=== PATIENT | male | born 1935 | race Two or more races ===

== ENCOUNTER 2021-12-31 06:11 | Emergency (ER) | payer OTHER ==
[~2021-12-31] VITALS: Ht 190.5 cm; Wt 108.9 kg
--- NOTE | 2021-12-31 06:46 | NUR ---
[id number]. FOUND ON FLOOR. C/O BILAT KNEE PAIN AND NOTED SKIN TEAR ON RFA. DENIES HEAD TRAUMA. PT IS + ON ELIQUIES. PLACED ON MONITOR AND V/S WNL. WAS AT BEDSIDE FOR EVAL.
--- NOTE | 2021-12-31 08:15 | NUR ---
Ramone deluna in [facility] - 12/31/21 at 0815 by ROSHAN CHLAMYDIA/GC SWAB DONE AND SENT TO LAB
[2021-12-31] MEDS ORDERED: TDAP [DIPH/PERTUSSIS/TET] 0.5 ML VIAL IM ONE (08:30)
[2021-12-31] MEDS ORDERED: BACI/NEOM/POLY B OINT PKT 1 UDPKT PACKET TP ONE (08:30)
--- NOTE | 2021-12-31 08:34 | NUR ---
DR. JUAREZ SPEAKING WITH DR. FOSTER.
--- NOTE | 2021-12-31 08:42 | NUR ---
[facility] CALLED FOR TRANSPORT ETA 5 MINS PER JENNY.
[2021-12-31] MEDS ORDERED: BACI/NEOM/POLY B OINT PKT 1 UDPKT PACKET ONE (08:53)
--- NOTE | 2021-12-31 09:10 | NUR ---
REPORT GIVEN TO MERLYN ORTIZ. PATIENT WILL BE GOING BACK TO FACILITY VIA [facility]SPO WITH FAMILY MEMBER
[2021-12-31 09:11] VITALS: BP 115/55
== END 2021-12-31 09:12 ==
LOC: ER 06:14
DX: S51.811A Laceration without foreign body of right forearm, initial encounter (principal); S80.211A Abrasion, right knee, initial encounter; I10 Essential (primary) hypertension; Z86.69 Personal history of other diseases of the nervous system and sense organs; W01.0XXA Fall on same level from slipping, tripping and stumbling without subsequent striking against object, initial encounter; Y93.01 Activity, walking, marching and hiking; Y92.129 Unspecified place in nursing home as the place of occurrence of the external cause; Y99.8 Other external cause status
CPT/HCPCS: 70450-TC; 71045-TC; 73090-TC; 73502; 73560-TC; 90715

== ENCOUNTER 2022-02-13 08:12 | Emergency (ER) | payer OTHER ==
[~2022-02-13] VITALS: Ht 170.2 cm; Wt 106.1 kg
--- NOTE | 2022-02-13 08:24 | NUR ---
TO ER BED 6, [id number] [place] C/O SOB SINCE THIS MORNING, PER EMS 86RA, SATTING 96 ON 15LPM, NONREBREATHER, AAOX2, CONNECTED TO MONITOR, AWAITING MD CAMACHO
--- NOTE | 2022-02-13 09:15 | NUR ---
RAIZA RESS ([id number]) - [phone]
--- NOTE | 2022-02-13 09:15 | NUR ---
RESPIRATORY AT BEDSIDE FOR ABG
[2022-02-13 09:21] LABS: CALCIUM, SERUM 10.2 mg/dL (8.5-10.1); CARBON DIOXIDE 31 mmol/L (21-32); CHLORIDE 107 mmol/L (98-107); CREATININE 1.1 mg/dL (0.6-1.3); GLUCOSE 126 mg/dL (74-106); POTASSIUM 3.5 mmol/L (3.5-5.1); SODIUM SERUM 142 mmol/L (136-145); UREA NITROGEN, BLOOD 21 mg/dL (7-18)
[2022-02-13 09:22] LABS: ABG PCO2 47.8 mmHg (35.0-45.0); ABG PO2 90.3 mmHg (75.0-100.0); COHb 0.6 % (0.5-1.5); MetHb 0.3 % (0.0-1.5); O2Hb 95.2 % (94.0-97.0); SITE, ABG Right Radial; VENT MODE, BG 15 L NRB
[2022-02-13 09:32] LABS: BASOPHILS # (AUTO) 0.1 K/uL (0.0-0.2); BASOPHILS % (AUTO) 0.7 % (0.0-2.0); EOSINOPHILS % (AUTO) 1.6 % (0.0-6.0); HEMATOCRIT 35 % (39-51); LYMPHOCYTES # (AUTO) 0.9 K/uL (0.8-4.8); LYMPHOCYTES % (AUTO) 6.2 % (20.0-44.0); MEAN CORPUSCULAR HGB CONC 32 g/dl (31.0-36.0); MEAN CORPUSCULAR VOLUME 86 fL (80-96); MONOCYTES # (AUTO) 1.3 K/uL (0.1-1.30); MONOCYTES % (AUTO) 9.1 % (2.0-12.0); NEUTROPHILS # (AUTO) 11.9 K/uL (1.8-8.9); NEUTROPHILS % (AUTO) 82.4 % (43.0-81.0); PLATELET COUNT (AUTO) 310 K/uL (150-450); RED BLOOD CELL COUNT(AUTO) 4.05 MIL/uL (4.5-6.0); WHITE BLOOD COUNT (AUTO) 14.5 K/uL (4.3-11.0)
[2022-02-13 09:36] LABS: ALANINE AMINOTRANSFERASE 54 U/L (12-78); ALBUMIN 2.3 g/dL (3.4-5.0); ALKALINE PHOSPHATASE 78 U/L (46-116); ASPARTATE AMINOTRANSFERASE 39 U/L (15-37); BILIRUBIN,DIRECT 0.6 mg/dL (0.0-0.2); BILIRUBIN,TOTAL 1.1 mg/dL (0.2-1.0); TOTAL PROTEIN, SERUM 5.8 g/dL (6.4-8.2)
[2022-02-13 10:00] LABS: BILIRUBIN,URINE SMALL (NEGATIVE); COLOR,URINE DARK YELLOW (YELLOW); LEUKOCYTE ESTERASE ,URINE NEGATIVE (NEGATIVE); NITRITE, URINE NEGATIVE (NEGATIVE); PROTEIN,URINE NEGATIVE (NEGATIVE); UGLUCOSE NEGATIVE (NEGATIVE); UROBILINOGEN,URINE >=8.0 EU/dL (0.2)
[2022-02-13] MEDS ORDERED: CEFTRIAXONE 1GM BAG (ER ONLY) 50 ML IV ONE (10:00)
[2022-02-13] MEDS ORDERED: DEXAMETHASONE SOD PHOSPHATE 10 MG/ML VIAL IV ONE (10:00)
[2022-02-13] MEDS ORDERED: AZITHROMYCIN 500 MG in IV D5W 250 ML IV ONE (10:00)
[2022-02-13] MEDS ORDERED: DEXAMETHASONE SOD PHOSPHATE 10 MG/ML VIAL ONE (10:00)
--- NOTE | 2022-02-13 10:00 | NUR ---
DR HOPE IN CONTACT WITH PCP MARIELOS. PER DR HOPE [facility] WILL DISCHARGE
[2022-02-13] MEDS ORDERED: CETI-355 PO (10:33)
[2022-02-13] MEDS ORDERED: DOCU-141 PO (10:33)
[2022-02-13] MEDS ORDERED: CHOL400C8 PO (10:33)
[2022-02-13] MEDS ORDERED: TIMO5SOL11 EACHEYE (10:33)
[2022-02-13] MEDS ORDERED: ATOR40TA PO (10:33)
[2022-02-13] MEDS ORDERED: APIX5TAB PO (10:33)
[2022-02-13] MEDS ORDERED: MELA5TAB PO (10:33)
[2022-02-13] MEDS ORDERED: POLY17PO4 PO (10:33)
[2022-02-13] MEDS ORDERED: SERT100T PO (10:33)
[2022-02-13] MEDS ORDERED: GABA-532 PO (10:33)
[2022-02-13] MEDS ORDERED: RISP1TAB97 PO (10:33)
[2022-02-13] MEDS ORDERED: TAMS-12 PO (10:33)
[2022-02-13] MEDS ORDERED: IPRA3AMP23 IH (10:33)
[2022-02-13] MEDS ORDERED: METO25TA4 PO (10:33)
[2022-02-13] MEDS ORDERED: LORA-259 PO (10:33)
[2022-02-13] MEDS ORDERED: RISP0.5T65 PO (10:33)
[2022-02-13] MEDS ORDERED: MEMA10TA PO (10:33)
[2022-02-13] MEDS ORDERED: TRAZ-257 PO (10:33)
[2022-02-13 12:02] LABS: BACTERIA,URINE Few /HPF (None Seen); CALCIUM OXALATE CRYSTALS,UR Few /HPF (None Seen); SQUAMOUS EPITHELIAL CELL,UR Few /HPF (None Seen); WBC,URINE 0-2 /HPF (0-3)
--- NOTE | 2022-02-13 12:03 | NUR ---
CALLED [facility] FOR TRANSPORT TO THE [facility]. ETA 45 MINUTES.
--- NOTE | 2022-02-13 13:40 | NUR ---
PICKED UP BY TRANSPORT IN STABLE CONDITION, FAMILY AND PCP AWARE
[2022-02-13 14:01] VITALS: BP 142/80
== END 2022-02-13 14:01 ==
LOC: ER 08:19
DX: J18.9 Pneumonia, unspecified organism (principal); R06.03 Acute respiratory distress; Z20.822 Contact with and (suspected) exposure to COVID-19; Z66 Do not resuscitate; Z51.5 Encounter for palliative care; I48.91 Unspecified atrial fibrillation; D64.9 Anemia, unspecified; E86.0 Dehydration; R74.01 Elevation of levels of liver transaminase levels; D68.9 Coagulation defect, unspecified; Z79.01 Long term (current) use of anticoagulants; Z79.899 Other long term (current) drug therapy; E78.5 Hyperlipidemia, unspecified; G62.9 Polyneuropathy, unspecified; F03.90 Unspecified dementia, unspecified severity, without behavioral disturbance, psychotic disturbance, mood disturbance, and anxiety; I10 Essential (primary) hypertension
CPT/HCPCS: 99285; 96365; 71045; 96367; 96375; 87426; 93005; 82803; 84145; 85025; 80048; 87040 ×2; 87086; 83605; 80076; 81001; 36415; 84484; 85730; 83880; 36600; J1100; J0456; J0696; C9803; J7060